=== PATIENT | female | born 1980 | race Caucasian/White ===

== ENCOUNTER 2020-09-19 08:10 | Emergency (ER) | payer MEDICAID ==
[~2020-09-19] VITALS: Ht 165.1 cm; Wt 5.0 kg
--- NOTE | 2020-09-19 08:34 | NUR ---
PT STATES SHE IS DETOXING FROM ALCOHOL, C/O BODY ACHES AND PRATER, PER PT LAST DRINK WAS AT 0200AM THIS MORNING. PT REPORTS SHE NEEDS CLEARANCE BEFORE SHE CAN GO TO [facility] FOR THEIR REHAB PROGRAM. PLACED ON VITALS MONITORS. ER PROVIDER AT BEDSIDE FOR EVAL.
[2020-09-19] MEDS ORDERED: CHLORDIAZEPOXIDE 25 MG CAPSULE ONE (08:42)
[2020-09-19] MEDS ORDERED: BUPR150T13 PO (08:49)
[2020-09-19] MEDS ORDERED: METO-93 PO (08:49)
[2020-09-19] MEDS ORDERED: TRAZ50TA66 PO (08:49)
[2020-09-19] MEDS ORDERED: SERT50TA28 PO (08:49)
[2020-09-19] MEDS ORDERED: MELO15TA24 PO (08:49)
[2020-09-19] MEDS ORDERED: BUSP10TA PO (08:49)
[2020-09-19] MEDS ORDERED: DEXT15CA PO (08:49)
[2020-09-19] MEDS ORDERED: LISI5TAB7 PO (08:49)
[2020-09-19] MEDS ORDERED: CHLORDIAZEPOXIDE 25 MG CAPSULE PO ONE (09:00)
[2020-09-19 09:19] VITALS: BP 148/98
--- NOTE | 2020-09-19 09:21 | NUR ---
PT SLEEPING IN NAD, EVEN AND UNLABORES RESPIRATIONS NOTED. VSS.
== END 2020-09-19 10:14 | disposition home or self-care (01) ==
LOC: ED 08:39
DX: F10.139 Alcohol abuse with withdrawal, unspecified (principal); R51.9 Headache, unspecified; M79.10 Myalgia, unspecified site; R53.83 Other fatigue; I10 Essential (primary) hypertension; F17.200 Nicotine dependence, unspecified, uncomplicated; Y90.0 Blood alcohol level of less than 20 mg/100 ml
CPT/HCPCS: 99283